=== PATIENT | female | born 1930 | race Caucasian/White ===

== ENCOUNTER 2018-12-25 16:58 | Observation (INO) ==
[2018-12-25] MEDS ORDERED: PNEUMOCOCCAL VACCINE (13 VALENT) 0.5 ML SYRINGE IM ONE (19:14)
[2018-12-25] MEDS ORDERED: ACETAMINOPHEN 325 MG TABLET PO PRN (19:32)
[2018-12-25] MEDS ORDERED: ONDANSETRON 4 MG TABLET PO PRN (20:02)
[2018-12-25] MEDS ORDERED: traMADol 50 MG TABLET PO PRN (20:02)
[2018-12-25 20:33] LABS: Bilirubin,Total 0.7 MG/DL (0.2-1.0); Calcium 8.8 MG/DL (8.5-10.1); Osmolality,Calculated 271.1 MOS/KG (273-304); Potassium 3.5 MMOL/L (3.5-5.1); Total Protein 6.6 G/DL (6.4-8.3)
[2018-12-25] MEDS ORDERED: traZODone 50 MG TABLET PO PRN (21:00)
[2018-12-25] MEDS: OSELTAMIVIR 75 MG CAPSULE PO SCH (21:20)
[2018-12-25] MEDS: LISINOPRIL/HCTZ 20-12.5 MG TABLET PO SCH (21:20)
[2018-12-25] MEDS: ATORVASTATIN 10 MG TABLET PO SCH (21:20)
[2018-12-25] MEDS ORDERED: LEVOFLOXACIN INJ 500 MG in PREMIX 1 EACH IV ONE (22:00)
[2018-12-26] MEDS: ZALEPLON 5 MG CAPSULE PO PRN ×2 (01:05→22:03)
[2018-12-26 06:07] LABS: Basophils % 0.5 % (0.0-0.8); Eosinophils # 0.2 10*3/uL (0.0-0.87); Eosinophils % 2.2 % (0.00-10.9); Hematocrit 36.5 VOL% (35.7-47.0); Immature Granulocytes % 0.6 %; Immature Granulocytes Absolute 0.05 #; Lymphocytes # 2.1 10*3/uL (1.4-4.0); Lymphocytes % 26.4 % (21.3-54.2); Mean Corpuscular HGB Conc 32.9 GM/DL (32-36); Mean Corpuscular Hemoglobin 30 PG (27-34); Mean Corpuscular Volume 90.6 FL (87-102); Mean Platelet Volume 11.7 FL (9.6-12.0); Monocytes % 12.6 % (1.7-12.7); Neutrophils # 4.7 10*3/uL (1.4-7.4); Neutrophils % 57.7 % (38.7-73.9); Platelet Count 156 T/CUMM (130-400); Red Blood Count 4.03 MC/CUMM (3.8-5.5); Red Cell Distribution Width 13.3 % (9.3-17.3); White Blood Count 8.1 T/CUMM (4-12)
[2018-12-26] MEDS: LEVOTHYROXINE 100 MCG TABLET PO SCH (06:14)
[2018-12-26 06:35] LABS: Albumin 2.9 G/DL (3.4-5.0); Bilirubin,Total 1.3 MG/DL (0.2-1.0); Calcium 8.5 MG/DL (8.5-10.1); Potassium 3.2 MMOL/L (3.5-5.1); Total Protein 6.3 G/DL (6.4-8.3)
[2018-12-26] MEDS ORDERED: POTASSIUM CHLORIDE 20 MEQ TABLET PO ONE (08:15)
[2018-12-26] MEDS ORDERED: PHENYLEPHRINE PO SCH (09:00)
[2018-12-26] MEDS ORDERED: PANTOPRAZOLE 40 MG TABLET PO SCH (09:00)
[2018-12-26] MEDS ORDERED: CHLORPHENIRAMINE PO SCH (09:00)
[2018-12-26] MEDS: CHOLECALCIFEROL 1,000 UNIT TABLET PO SCH (09:23)
[2018-12-26] MEDS: ESCITALOPRAM 10 MG TABLET PO SCH (09:24)
[2018-12-26] MEDS: PANTOPRAZOLE 40 MG TABLET PO SCH (09:24)
[2018-12-26] MEDS: LISINOPRIL/HCTZ 20-12.5 MG TABLET PO SCH ×2 (09:24→22:01)
[2018-12-26] MEDS: ASPIRIN EC 81 MG TABLET PO SCH (09:24)
[2018-12-26] MEDS: OSELTAMIVIR 75 MG CAPSULE PO SCH ×2 (09:24→22:01)
[2018-12-26] MEDS: OXYBUTYNIN XL 10 MG TABLET PO SCH (09:24)
[2018-12-26] MEDS: NEBIVOLOL 5 MG TABLET PO SCH (09:24)
[2018-12-26] MEDS: COENZYME Q10 100 MG CAPSULE PO SCH (09:25)
[2018-12-26] MEDS: DONEPEZIL 5 MG TABLET PO SCH (09:25)
[2018-12-26] MEDS ORDERED: SODIUM CHLORIDE 0.45% 1,000 ML IV SCH (09:30)
[2018-12-26] MEDS: SODIUM CHLORIDE 0.9% 1,000 ML IV SCH (11:19)
[2018-12-26] MEDS: guaiFENesin 200 MG/10 ML UDCUP PO PRN (15:48)
[2018-12-26] MEDS: ATORVASTATIN 10 MG TABLET PO SCH (22:01)
[2018-12-26] MEDS: LEVOFLOXACIN INJ 250 MG in PREMIX 1 EACH IV SCH (22:03)
[2018-12-27] MEDS: SODIUM CHLORIDE 0.9% 1,000 ML IV SCH (06:24)
[2018-12-27] MEDS: LEVOTHYROXINE 100 MCG TABLET PO SCH (06:26)
[2018-12-27] MEDS: ASPIRIN EC 81 MG TABLET PO SCH (08:57)
[2018-12-27] MEDS: PANTOPRAZOLE 40 MG TABLET PO SCH (08:58)
[2018-12-27] MEDS: LISINOPRIL/HCTZ 20-12.5 MG TABLET PO SCH ×2 (08:58→21:03)
[2018-12-27] MEDS: OSELTAMIVIR 75 MG CAPSULE PO SCH ×2 (08:58→21:03)
[2018-12-27] MEDS: COENZYME Q10 100 MG CAPSULE PO SCH (08:59)
[2018-12-27] MEDS: OXYBUTYNIN XL 10 MG TABLET PO SCH (08:59)
[2018-12-27] MEDS: DONEPEZIL 5 MG TABLET PO SCH (08:59)
[2018-12-27] MEDS: ESCITALOPRAM 10 MG TABLET PO SCH (08:59)
[2018-12-27] MEDS: CHOLECALCIFEROL 1,000 UNIT TABLET PO SCH (08:59)
[2018-12-27] MEDS: NEBIVOLOL 5 MG TABLET PO SCH (09:02)
[2018-12-27] MEDS: guaiFENesin 200 MG/10 ML UDCUP PO PRN (10:21)
[2018-12-27] MEDS ORDERED: POTASSIUM CHLORIDE 20 MEQ TABLET PO PRN (14:51)
[2018-12-27] MEDS: LEVOFLOXACIN INJ 250 MG in PREMIX 1 EACH IV SCH (21:03)
[2018-12-27] MEDS: ATORVASTATIN 10 MG TABLET PO SCH (21:03)
[2018-12-27] MEDS: ZALEPLON 5 MG CAPSULE PO PRN (21:09)
[2018-12-28] MEDS: SODIUM CHLORIDE 0.9% 1,000 ML IV SCH ×2 (03:43)
[2018-12-28] MEDS: guaiFENesin 200 MG/10 ML UDCUP PO PRN (04:36)
[2018-12-28] MEDS: LEVOTHYROXINE 100 MCG TABLET PO SCH (06:25)
[2018-12-28 06:36] LABS: Basophils % 0.4 % (0.0-0.8); Eosinophils # 0.3 10*3/uL (0.0-0.87); Eosinophils % 2.8 % (0.00-10.9); Hematocrit 34.9 VOL% (35.7-47.0); Hemoglobin 11.4 GM/DL (12.0-16.0); Immature Granulocytes % 0.7 %; Immature Granulocytes Absolute 0.06 #; Lymphocytes # 2.4 10*3/uL (1.4-4.0); Lymphocytes % 26.2 % (21.3-54.2); Mean Corpuscular HGB Conc 32.7 GM/DL (32-36); Mean Corpuscular Hemoglobin 30 PG (27-34); Mean Corpuscular Volume 90.6 FL (87-102); Mean Platelet Volume 11.8 FL (9.6-12.0); Monocytes # 0.7 10*3/uL (0.11-0.8); Monocytes % 7.8 % (1.7-12.7); Neutrophils # 5.7 10*3/uL (1.4-7.4); Neutrophils % 62.1 % (38.7-73.9); Platelet Count 151 T/CUMM (130-400); Red Blood Count 3.85 MC/CUMM (3.8-5.5); Red Cell Distribution Width 13.2 % (9.3-17.3); White Blood Count 9.2 T/CUMM (4-12)
[2018-12-28 06:50] LABS: Calcium 8.3 MG/DL (8.5-10.1); Osmolality,Calculated 277.5 MOS/KG (273-304); Potassium 3.9 MMOL/L (3.5-5.1)
[2018-12-28] MEDS: OSELTAMIVIR 75 MG CAPSULE PO SCH (09:49)
[2018-12-28] MEDS: PANTOPRAZOLE 40 MG TABLET PO SCH (09:49)
[2018-12-28] MEDS: OXYBUTYNIN XL 10 MG TABLET PO SCH (09:50)
[2018-12-28] MEDS: NEBIVOLOL 5 MG TABLET PO SCH (09:50)
[2018-12-28] MEDS: ASPIRIN EC 81 MG TABLET PO SCH (09:50)
[2018-12-28] MEDS: ESCITALOPRAM 10 MG TABLET PO SCH (09:50)
[2018-12-28] MEDS: DONEPEZIL 5 MG TABLET PO SCH (09:50)
[2018-12-28] MEDS: LISINOPRIL/HCTZ 20-12.5 MG TABLET PO SCH (09:50)
[2018-12-28] MEDS: COENZYME Q10 100 MG CAPSULE PO SCH (09:51)
[2018-12-28] MEDS: CHOLECALCIFEROL 1,000 UNIT TABLET PO SCH (09:51)
[2018-12-28 12:48] VITALS: BP 159/74
== END 2018-12-28 14:15 | disposition home health service (06) ==
LOC: N.5E → SUATTDRO 17:11 → N.5E 17:43
PROVIDERS: ADMIT Internal Medicine; ATTEND Internal Medicine